=== PATIENT | female | born 1960 | race Caucasian/White ===

== ENCOUNTER 2018-10-29 18:14 | Inpatient (IN) | payer OTHER ==
[2018-10-29] MEDS ORDERED: ONDANSETRON 4 MG/2 ML VIAL IVPUSH ONE (18:28)
--- NOTE | 2018-10-29 18:28 | PDOC ---
Rapid Medical Evaluation Chief Complaint: Pain Time Seen by Provider: 10/29/18 18:24 Medical Evaluation: 10/29/18 18:27 HPI: Abdominal pain x 4 days PE: No gross deficits ORDERS: Labs Discharge Disposition - Diagnosis Abdominal pain - Referrals - Patient Instructions - Post Discharge Activity
[2018-10-29] MEDS ORDERED: ONDANSETRON 4 MG/2 ML VIAL ONE (20:07)
[2018-10-29] MEDS ORDERED: ACETAMINOPHEN 1000 MG/100 ML VIAL (NON FORMULARY) IVPB ONE (20:38)
[2018-10-29] MEDS ORDERED: HYDROmorphone HCL CARPU-JECT 2 MG/1 ML DISP.SYRIN IVPUSH ONE (20:38)
[2018-10-29] MEDS ORDERED: SODIUM CHLORIDE 1,000 ML IV STA (20:38)
[2018-10-29] MEDS ORDERED: HYDROmorphone HCl 2 MG/ML VIAL ONE (20:42)
--- NOTE | 2018-10-29 20:43 | PDOC ---
History of Present Illness - General Chief Complaint: Pain Stated Complaint: ABDOMINAL PAIN Time Seen by Provider: 10/29/18 18:24 History Source: Patient Exam Limitations: No Limitations - History of Present Illness Initial Comments: 10/30/18 01:51 58 yo F with a hx of seronegative rheumatoid arthritis, multiple abdominal surgeries (multiple SBOs per patient, most recent 1 year ago, cholecystectomy, anterior spinal fusion, hysterectomy, and C/S) presents to the emergency department with 5 days of abdominal pain with acute worsening today. Per the patient, she states this pain feels similar to her last SBO (previous surgeries done by Dr. Colbert and Dr. Sangeetha Dillon). Per the patient, she recently moved from [place]. The patient states the pain is cramping located in the LLQ radiating to the LUQ. Her last BM was in the AM 4x small diarrheal episodes. Began vomiting today without hematochezia. Unable to tolerate PO at home. The patient denies the following: fever, chills, SOB, chest pain, dysuria, hematuria , and lightheadedness. Last meal and water consumption at 1:00 pm and denies anticoagulation use. Denies aspirin use. Allergies: Morphine (states she gets hives; but endorses dilaudid use in the past), prochlorperazine. Past History - Past Medical History Allergies/Adverse Reactions: Allergies Allergy/AdvReac Type Severity Reaction Status Date / Time morphine Allergy Severe Verified 10/29/18 18:27 prochlorperazine Allergy Severe Verified 10/29/18 18:27 [From Compazine] - Suicide/Smoking/Psychosocial Hx Smoking History: Current every day smoker Number of Cigarettes Smoked Daily: 10 Information on smoking cessation initiated: No Hx Alcohol Use: No Drug/Substance Use Hx: No *Physical Exam - Vital Signs Last Vital Signs Temp Pulse Resp BP Pulse Ox 98.6 F 59 L 18 119/73 97 10/29/18 18:28 10/29/18 18:28 10/29/18 18:28 10/29/18 18:28 10/29/18 18:28 - Physical Exam General Appearance: Yes: Nourished, Appropriately Dressed. No: Apparent Distress, Intoxicated, Obese HEENT: positive: EOMI, NGA, Normal Voice, Symmetrical, Pharynx Normal, Hearing Grossly Normal. negative: Pale Conjunctivae, Scleral Icterus (R), Scleral Icterus (L), Muffled/Hoarse voice, Pharyngeal Erythema, Tonsillar Exudate, Tonsillar Erythema, Nasal Congestion, Rhinorrhea, Sinus Tenderness, Excessive drooling Neck: positive: Trachea midline, Supple. negative: Tender, Lymphadenopathy (R) , Lymphadenopathy (L), Tender lateral, Tender midline Respiratory/Chest: positive: Lungs Clear, Normal Breath Sounds. negative: Chest Tender, Respiratory Distress, Accessory Muscle Use, Crackles, Rales, Rhonchi, Stridor, Wheezing Cardiovascular: positive: Regular Rhythm, Regular Rate, S1, S2. negative: Systolic Murmur Gastrointestinal/Abdominal: positive: Normal Bowel Sounds, Tender (LUQ and LLQ. ), Soft, Distended. negative: Guarding, Rebound Lymphatic: negative: Adenopathy Musculoskeletal: positive: Normal Inspection. negative: CVA Tenderness, Vertebral Tenderness Extremity: positive: Normal Capillary Refill, Normal Inspection, Normal Range of Motion. negative: Tender, Swelling, Calf Tenderness Integumentary: positive: Normal Color, Dry, Warm. negative: Swelling, Ecchymosis, Bruising Neurologic: positive: direct support staff member II-XII NML intact, Fully Oriented, Alert, Normal Mood/ Affect, Motor Strength 5/5. negative: EOM Palsy ED Treatment Course - LABORATORY CBC & Chemistry Diagram: 10/29/18 20:40 10/29/18 20:40 Medical Decision Making - Medical Decision Making 58 yo F with a hx of seronegative rheumatoid arthritis, multiple abdominal surgeries (multiple SBOs per patient, most recent 1 year ago, cholecystectomy, anterior spinal fusion, hysterectomy, and C/S) presents to the emergency department with 5 days of abdominal pain with acute worsening today. Initial vitals: Initial Vital Signs Temp Pulse Resp BP Pulse Ox 98.6 F 59 L 18 119/73 97 10/29/18 18:28 10/29/18 18:28 10/29/18 18:28 10/29/18 18:28 10/29/18 18:28 Patient presents with extensive abdominal surgeries with similar quality of abdominal pain from previous SBOs. The patient has had N/V onset with decreased output of stool beginning today with cessation of flatulence. Will obtain cbc, cmp, lipase, lactic acid, ua, urine culture, abdomen pelvis IV and Oral. Interventions: dilaudid, NS 1 L initial bolus, and tylenol. Laboratory Tests 10/29/18 10/29/18 10/29/18 20:40 20:40 20:40 WBC 7.8 RBC 4.36 Hgb 11.7 Hct 35.5 MCV 81.6 MCH 26.8 MCHC 32.8 RDW 16.6 H Plt Count 262 MPV 8.5 Absolute Neuts (auto) 4.3 Neutrophils % 55.1 Lymphocytes % 36.2 Monocytes % 5.6 Eosinophils % 2.0 Basophils % 1.1 Nucleated RBC % 0 PT with INR INR Sodium 137 Potassium 4.0 Chloride 103 Carbon Dioxide 29 Anion Gap 6 L BUN 12.2 Creatinine 0.6 Est GFR (CKD-EPI)AfAm 117.27 Est GFR (CKD-EPI)NonAf 101.18 Random Glucose 84 Lactic Acid Calcium 9.0 Total Bilirubin 0.2 AST 20 ALT 27 Alkaline Phosphatase 88 Creatine Kinase 101 Troponin I < 0.02 Total Protein 6.6 Albumin 3.7 Lipase 61 L 10/29/18 10/29/18 20:40 20:40 WBC RBC Hgb Hct MCV MCH MCHC RDW Plt Count MPV Absolute Neuts (auto) Neutrophils % Lymphocytes % Monocytes % Eosinophils % Basophils % Nucleated RBC % PT with INR 11.20 INR 0.95 Sodium Potassium Chloride Carbon Dioxide Anion Gap BUN Creatinine Est GFR (CKD-EPI)AfAm Est GFR (CKD-EPI)NonAf Random Glucose Lactic Acid 0.5 Calcium Total Bilirubin AST ALT Alkaline Phosphatase Creatine Kinase Troponin I Total Protein Albumin Lipase lactic acid negative. patient's CT abdomen and pelvis (read on imaging director of flight operations) shows by report "short segment of minimally dilated small bowel left lower quadrant possibly transient dilatation versus partial obstruction. Advise follow up. Oral contrast progresses into colon. A call was placed to surgery director of flight operations 2nd 1 Liter of NS placed and maintenance fluids ordered (112 ml/hr). 10/30/18 02:05 10/30/18 02:09 *DC/Admit/Observation/Transfer Diagnosis at time of Disposition: Abdominal pain - Referrals Referrals: Collette Young MD [Primary Care Provider] - - Patient Instructions - Post Discharge Activity
[2018-10-29] MEDS ORDERED: ACETAMINOPHEN INJECTION 100 ML IVPB ONE (20:44)
[2018-10-29 21:09] LABS: BASO % 1.1 % (0-2.0); HEMATOCRIT 35.5 % (32.4-45.2); HEMOGLOBIN 11.7 GM/dL (10.7-15.3); LYMPH % 36.2 % (8-40); MCH 26.8 pg (25.7-33.7); MCHC 32.8 g/dl (32.0-36.0); MEAN CELL VOLUME 81.6 fl (80-96); MEAN PLT VOLUME 8.5 fl (7.5-11.1); MONO % 5.6 % (3.8-10.2); NEUT % 55.1 % (42.8-82.8); PLATELET COUNT 262 K/MM3 (134-434); RBC 4.36 M/mm3 (3.60-5.2); RDW 16.6 % (11.6-15.6); WHITE BLOOD COUNT 7.8 K/mm3 (4.0-10.0)
[2018-10-29 21:30] LABS: INR 0.95 (0.83-1.09); PROTHROMBIN TIME (PATIENT) 11.2 SEC (9.7-13.0)
[2018-10-29 21:33] LABS: ALBUMIN 3.7 g/dl (3.4-5.0); ALK PHOS 88 U/L (45-117); ANION GAP 6 MMOL/L (8-16); BILIRUBIN,TOTAL 0.2 mg/dL (0.2-1); BLOOD UREA NITROGEN 12.2 mg/dL (7-18); CHLORIDE 103 mmol/L (98-107); CO2 29 mmol/L (21-32); CREATININE 0.6 mg/dL (0.55-1.3); GLUCOSE,RANDOM 84 mg/dL (74-106); SGOT/AST 20 U/L (15-37); SGPT/ALT 27 U/L (13-61); SODIUM 137 mmol/L (136-145); TOT PROT 6.6 g/dl (6.4-8.2)
--- NOTE | 2018-10-29 21:52 | PDOC ---
Documentation entered by Cary Chowdary SCRIBE, acting as scribe for Mayelin Gordon MD. Mayelin Gordon MD: This documentation has been prepared by the Epi palma Brenda, SCRIBE, under my direction and personally reviewed by me in its entirety. I confirm that the documentation accurately reflects all work, treatment, procedures, and medical decision making performed by me. Attending Attestation - Resident Resident Name: Tacho Stacy - ED Attending Attestation I have performed the following: I have examined & evaluated the patient, The case was reviewed & discussed with the resident, I agree w/resident's findings & plan, Exceptions are as noted - HPI HPI: 10/29/18 20:17 The patient is a 58 year old female, with a significant PMH of who presents to the emergency department with 4 days of abdominal pain. - Physicial Exam PE: 10/30/18 01:[address] Stacy's physical exam - Medical Decision Making 10/29/18 21:51 diff diag includes partial or complete sbo, diverticulitis,hernia,diverticulitis ,fecal impaction labs are unremarkable 10/30/18 01:27 EXAM: CT ABDOMEN AND PELVIS WITH CONTRAST Short segment of minimally dilated small bowel left lower quadrant, possibly transient dilatation versus partial obstruction. Advise followup. Oral contrast progresses into colon. Surgical changes right lower quadrant small bowel with anastomotic suture line near midline. No colitis or free air. Normal appendix. Trace ascites Unremarkable pancreas Small nonobstructing stones bilateral kidneys. Subcentimeter cortical hypodensity left kidney Cholecystectomy Hysterectomy Gastroesophageal reflux Trace bilateral pleural effusions Surgical changes lumbar spine 10/30/18 01:55 labs reviewed wnl will admit this pt for partial sbo, serial abd exams,surgical consult
[2018-10-29] MEDS ORDERED: METOCLOPRAMIDE HCL INJECTION 10 MG/2 ML VIAL IVPB ONE (22:55)
[2018-10-29] MEDS ORDERED: METOCLOPRAMIDE HCL INJECTION 10 MG/2 ML VIAL ONE (23:02)
[2018-10-30] MEDS ORDERED: SODIUM CHLORIDE 1,000 ML IV STA (01:34)
[2018-10-30] MEDS ORDERED: SODIUM CHLORIDE 1,000 ML IV SCH (01:45)
[2018-10-30 02:33] LABS: PH,URINE 6.5 (5.0-8.0); URINE APPEARANCE CLEAR; URINE BILIRUBIN NEGATIVE (NEGATIVE); URINE COLOR YELLOW; URINE GLUCOSE (UA) NEGATIVE (NEGATIVE); URINE KETONE NEGATIVE (NEGATIVE); URINE LEUK ESTERASE NEGATIVE (NEGATIVE); URINE NITRITE NEGATIVE (NEGATIVE); URINE PROTEIN NEGATIVE (NEGATIVE); URINE UROBILINOGEN 0.2 mg/dL (0.2-1.0)
--- NOTE | 2018-10-30 03:21 | PN ---
Teaching Attending Note Name of Resident: Marleny Arzate ATTENDING PHYSICIAN STATEMENT I saw and evaluated the patient. I reviewed the resident's note and discussed the case with the resident. I agree with the resident's findings and plan as documented. SUBJECTIVE: Patient is a 58 year old womna with a PMH of Tobacco use, Morphine allergy, Psoriatic arthritis, Multiple abdominal surgeries (multiple SBOs), Cholecystectomy, Anterior spinal fusion, Hysterectomy and section presents to the ER with 5 days of abdominal pain that worsened today. Patient states that the pain feels similar to her last SBO (previous surgeries done by Dr. Colbert and Dr. Sangeetha Dillon). Per the patient, she recently moved from [place]. The patient states the pain is cramping, located in the LLQ, radiating to the LUQ. Her last BM was in the morning. Began vomiting today without hematochezia. Unable to tolerate PO at home. Patient denies fever, chills, SOB, chest pain, dysuria, hematuria, and lightheadedness. Last meal and water consumption at 1:00 pm and denies anticoagulation use. Denies aspirin use. Has FH of psoriasis. OBJECTIVE: Alert Vital Signs Period Temp Pulse Resp BP Sys/Keith Pulse Ox Last 24 Hr 98.6 F 59 18 119/73 97-98 HEENT: No Jaundice, eye redness or discharge, PERRLA, EOMI. Normocephalic, atraumatic. External ears are normal and hearing is grossly intact. No nasal discharge. Neck: Supple, nontender. No palpable adenopathy or thyromegaly. No JVD Chest: Good effort. Clear to auscultation and percussion. Heart: Regular. No S3, rub or murmur Abdomen: Not distended, soft, nontender and no HSM. No rebound or guarding. Normal bowel sounds. Ext: Peripheral pulses intact. No leg edema. Skin: Warm and dry. No petechiae, rash or ecchymosis. Neuro: Alert. Oriented x3. CN 2-12 grossly intact. Sensation grossly intact in all four extremities and DTR are symmetric. Psych: Appropriate mood and affect. Good insight. Current Medications Generic Name Dose Route Start Last Admin Trade Name Freq PRN Reason Stop Dose Admin Sodium Chloride 1,000 mls @ 112 mls/hr 10/30/18 01:45 10/30/18 02:20 Normal Saline - IV 112 mls/hr ASDIR SANGEETHA Administration Abnormal Lab Results 10/29/18 10/29/18 10/29/18 20:40 20:40 20:40 RDW 16.6 H Anion Gap 6 L Lipase 61 L ASSESSMENT AND PLAN: 1. Partial Small Bowel Obstruction - Preliminary report of CT abdomen/pelvis with contrast: "Short segment of minimally dilated small bowel left lower quadrant, possibly transient dilatation versus partial obstruction. Oral contrast progresses into colon. No colitis or free air. Normal appendix. Unremarkable pancreas. Small nonobstructing stones bilateral kidneys. Subcentimeter cortical hypodensity left kidney". Surgery consulted. In the ER, patient got IV tylenol, dilaudid, benadryl, zofran, reglan and Normal saline. Patient being kept NPO and will use dilaudid for pain control and continue gentle IV NS. Hypotension may be due to medications she got before arrival (zanax, amlodipine, toprol xl, oxycodone, etc.). Will continue IV NS and avoid further use of analgesics, sedatives or antihypertensive drugs. EKG shows sinus bradycardia with no significant ST-T wave changes. During the day will get her medical records from the [facility]. 2. Tobacco Use Counseled on risks associated with tobacco use. We will provide patient all the necessary assistance to facilitate smoking cessation and prescribe Nicotine patch. 3. Obesity Counseled on the risks associated with obesity. Will provide patient all the necessary assistance, counseling and positive reinforcement to facilitate weight loss. Consult v belt finisher. 4. DVT prophylaxis - SCD 5. Advance directives - Full code
--- NOTE | 2018-10-30 04:44 | HP ---
CHIEF COMPLAINT: abdominal pain PCP: Dr. Collette Young ([facility]) Pain Management Physician: Dr. Nitin Arvizu HISTORY OF PRESENT ILLNESS: Iman Chang is a 58 year old female with a past medical history of seronegative rheumatoid arthritis with recent diagnosis of psoriatic arthritis, multiple surgeries (cholecystectomy, anterior spinal fusion, total hysterectomy , 2 with 1 being a vertical incision), 4 episodes of small bowel obstruction with 1 episode requiring partial small bowel resection who presents for several days worth of abdominal pain. She states that the abdominal pain began 4 days ago and has progressively getting worse. Pain is located in the epigastric region with radiation to the LUQ and RUQ with some migration to the RLQ and the back. Noted that pain is intermittent and worse when she palpates her stomach. She endorsed distension of the abdomen over the last several days. Associated nausea, dry heaving, no vomiting started on day of admission. Associated loose bowel movements, no melena, no hematochezia. She states that the pain is exactly the same as it was on her previous small bowel obstruction episodes. Her last meal was at 1PM on the day of admission when she was not able to eat as much as she usually does and was not able to consume fluids well. Denied chest pain, shortness of breath, fever, chills, dysphagia, dysuria , frequency, urgency, incomplete emptying, vaginal bleeding, numbness, tingling , swelling of extremities. Additionally, stated that she receives pain medication through Dr. Nitin Arvizu, oxycodone 30mg q4h and 10mg for breakthrough pain. This must be confirmed with the physician and through [facility]. ER course was notable for: (1) Hypotensive 82/48 (2) Abd/pelvis CT showing minimally dilated small bowel with transient dilation vs partial obstruction, contrast present in large colon, small non-obstructing renal stones, trace bilateral effusions (3) given 2L NS, ofirmev, benadryl, dilaudid 0.5, Reglan, Zofran, continued on NS @112cc/hr Recent Travel: recently moved from [facility] on [address] PAST MEDICAL HISTORY: as above PAST SURGICAL HISTORY: as above Social History: Smoking: on patch, recently started to smoke again Alcohol: denies Drugs: denies Family History: endorses family history of psoriasis Allergies morphine Allergy (Severe, Verified 10/29/18 18:27) prochlorperazine [From Compazine] Allergy (Severe, Verified 10/29/18 18:27) HOME MEDICATIONS: REVIEW OF SYSTEMS CONSTITUTIONAL: loss of appetite Absent: fever, chills, diaphoresis, generalized weakness, malaise, weight change HEENT: Absent: rhinorrhea, nasal congestion, throat pain, throat swelling, difficulty swallowing, CARDIOVASCULAR: Absent: chest pain, syncope, palpitations, irregular heart rate, lightheadedness , peripheral edema RESPIRATORY: Absent: cough, shortness of breath, dyspnea with exertion, orthopnea, wheezing GASTROINTESTINAL: abdominal pain, abdominal distension, loss bowel movement, nausea Absent: vomiting, diarrhea, constipation, melena, hematochezia GENITOURINARY: Absent: dysuria, frequency, urgency, hesitancy, hematuria, flank pain, vaginal bleeding MUSCULOSKELETAL: Absent: myalgia, arthralgia, joint swelling, back pain, neck pain SKIN: Absent: rash, itching, pallor HEMATOLOGIC/IMMUNOLOGIC: Absent: easy bleeding, easy bruising, lymphadenopathy, frequent infections ENDOCRINE: Absent: unexplained weight gain, unexplained weight loss, heat intolerance, cold intolerance NEUROLOGIC: Absent: headache, focal weakness or paresthesias, dizziness, unsteady gait, seizure, mental status changes, bladder or bowel incontinence PSYCHIATRIC: Absent: anxiety, depression, suicidal or homicidal ideation, hallucinations. PHYSICAL EXAMINATION Vital Signs - 24 hr 10/29/18 10/29/18 10/29/18 18:28 19:00 21:09 Temperature 98.6 F Pulse Rate 59 L Pulse Rate [ 51 L Left] Respiratory 18 19 Rate Blood Pressure 119/73 Blood Pressure 82/48 L [Left Arm] Blood Pressure 83/46 L [Right Arm] O2 Sat by Pulse 97 95 98 Oximetry (%) GENERAL: Awake, alert, and fully oriented, in moderate acute distress. HEAD: Normal with no signs of trauma. EYES: Pupils equal, round and reactive to light, extraocular movements intact, sclera anicteric, conjunctiva clear. EARS, NOSE, THROAT: Oropharynx clear without exudates. Dry mucous membranes. NECK: Normal range of motion, supple without lymphadenopathy, JVD. LUNGS: Breath sounds equal, clear to auscultation bilaterally. No wheezes, and no crackles. No accessory muscle use. HEART: Regular rate and rhythm, normal S1 and S2 without murmur, rub or gallop. ABDOMEN: Soft, distended, tender to palpation in the epigastric region, RUQ, LUQ , normoactive bowel sounds in lower quadrants, hypoactive bowel sounds in the upper quadrants, no guarding, no rebound, no masses. MUSCULOSKELETAL: Normal range of motion at all joints. No bony deformities or tenderness. UPPER EXTREMITIES: 2+ pulses, warm, well-perfused. No cyanosis. No clubbing. No peripheral edema. LOWER EXTREMITIES: 2+ pulses, warm, well-perfused. No calf tenderness. No peripheral edema. NEUROLOGICAL: Cranial nerves II-XII intact. 5/5 muscle strength bilaterally upper and lower extremities. PSYCHIATRIC: Cooperative. Good eye contact. Anxious mood and affect. SKIN: Warm, dry, normal turgor, no rashes or lesions noted, normal capillary refill. Laboratory Results - last 24 hr 10/29/18 10/29/18 10/29/18 20:40 20:40 20:40 WBC 7.8 RBC 4.36 Hgb 11.7 Hct 35.5 MCV 81.6 MCH 26.8 MCHC 32.8 RDW 16.6 H Plt Count 262 MPV 8.5 Absolute Neuts (auto) 4.3 Neutrophils % 55.1 Lymphocytes % 36.2 Monocytes % 5.6 Eosinophils % 2.0 Basophils % 1.1 Nucleated RBC % 0 PT with INR INR Sodium 137 Potassium 4.0 Chloride 103 Carbon Dioxide 29 Anion Gap 6 L BUN 12.2 Creatinine 0.6 Est GFR (CKD-EPI)AfAm 117.27 Est GFR (CKD-EPI)NonAf 101.18 Random Glucose 84 Lactic Acid Calcium 9.0 Total Bilirubin 0.2 AST 20 ALT 27 Alkaline Phosphatase 88 Creatine Kinase 101 Troponin I < 0.02 Total Protein 6.6 Albumin 3.7 Lipase 61 L Urine Color Urine Appearance Urine pH Ur Specific [place] Urine Protein Urine Glucose (UA) Urine Ketones Urine Blood Urine Nitrite Urine Bilirubin Urine Urobilinogen Ur Leukocyte Esterase 10/29/18 10/29/18 10/30/18 20:40 20:40 02:00 WBC RBC Hgb Hct MCV MCH MCHC RDW Plt Count MPV Absolute Neuts (auto) Neutrophils % Lymphocytes % Monocytes % Eosinophils % Basophils % Nucleated RBC % PT with INR 11.20 INR 0.95 Sodium Potassium Chloride Carbon Dioxide Anion Gap BUN Creatinine Est GFR (CKD-EPI)AfAm Est GFR (CKD-EPI)NonAf Random Glucose Lactic Acid 0.5 Calcium Total Bilirubin AST ALT Alkaline Phosphatase Creatine Kinase Troponin I Total Protein Albumin Lipase Urine Color Yellow Urine Appearance Clear Urine pH 6.5 Ur Specific [place] 1.030 Urine Protein Negative Urine Glucose (UA) Negative Urine Ketones Negative Urine Blood Negative Urine Nitrite Negative Urine Bilirubin Negative Urine Urobilinogen 0.2 Ur Leukocyte Esterase Negative EKG--> sinus bradycardia, no ST segment changes, QTc 390 ASSESSMENT/PLAN: Iman Chang is a 58 year old female with a past medical history of seronegative rheumatoid arthritis with recent diagnosis of psoriatic arthritis, multiple surgeries (cholecystectomy, anterior spinal fusion, total hysterectomy , 2 with 1 being a vertical incision), 4 episodes of small bowel obstruction with 1 episode requiring partial small bowel resection admitted for small bowel obstruction. Small Bowel Obstruction Hypertension Psoriatic Arthritis Tobacco Use Disorder Small Bowel Obstruction - exacerbation with extensive abdominal surgical history and history of SBO - NPO - can consider NG tube - Dr. Triplett consulted, will see patient - continue hydration with NS at 150cc/hr - will hold additional pain medications in setting of patient's hypotension of unclear origin, probable likelihood from overmedication with opiate pain medication as no reflex tachycardia present, caution with restart of pain medication - Necessary to reconciliate patient's pain medication from her pain management doctor, Dr. Arvizu ([phone]) and [facility] to confirm dosage Hypertension - hold home BP meds in setting of hypotension Psoriatic Arthritis - need to reconciliate home medications for her chronic autoimmune condition Tobacco Use Disorder - encouraged to abstain - nicotine patch FEN - NS at 150cc/hr - continue to monitor electrolytes and replete as necessary - NPO pending clearance by surgery Prophylaxis - SCDs Code - full code MARITZA PAZ DO - PGY-1 Visit type - Emergency Visit Emergency Visit: Yes Care time: The patient presented to the Emergency Department on the above date and was hospitalized for further evaluation of their emergent condition. - New Patient This patient is new to me today: Yes Date on this admission: 10/30/18 - Critical Care Critical Care patient: No
[2018-10-30] MEDS: SODIUM CHLORIDE 1,000 ML IV SCH ×2 (05:24→10:14)
[2018-10-30 08:54] LABS: HEMATOCRIT 34.7 % (32.4-45.2); HEMOGLOBIN 11.6 GM/dL (10.7-15.3); MCH 27.4 pg (25.7-33.7); MCHC 33.5 g/dl (32.0-36.0); MEAN CELL VOLUME 81.9 fl (80-96); MEAN PLT VOLUME 8.2 fl (7.5-11.1); PLATELET COUNT 241 K/MM3 (134-434); RBC 4.24 M/mm3 (3.60-5.2); RDW 16.5 % (11.6-15.6); WHITE BLOOD COUNT 6.5 K/mm3 (4.0-10.0)
[2018-10-30 09:23] LABS: INR 0.98 (0.83-1.09); PROTHROMBIN TIME (PATIENT) 11.6 SEC (9.7-13.0)
[2018-10-30 09:26] LABS: ACTIVATED PTT 41.7 SECONDS (25.2-36.5)
[2018-10-30 09:32] LABS: ALBUMIN 3.5 g/dl (3.4-5.0); BILIRUBIN,TOTAL 0.6 mg/dL (0.2-1); BLOOD UREA NITROGEN 7.6 mg/dL (7-18); CREATININE 0.6 mg/dL (0.55-1.3); MAGNESIUM 1.9 mg/dL (1.8-2.4); POTASSIUM 4.5 mmol/L (3.5-5.1); TOT PROT 6.2 g/dl (6.4-8.2)
[2018-10-30] MEDS ORDERED: KETOROLAC TROMETHAMINE 30 MG/1 ML VIAL IVPUSH PRN (09:57)
[2018-10-30] MEDS ORDERED: ENOXAPARIN NA (PORCINE) 40 MG/0.4 ML DISP.SYRIN SQ SCH (10:00)
[2018-10-30] MEDS ORDERED: NICOTINE 7 MG/24 HOURS TOPICAL PATCH TD SCH (10:00)
[2018-10-30] MEDS ORDERED: NICOTINE 21 MG/24 HOURS TOPICAL PATCH TD SCH (10:14)
[2018-10-30] MEDS ORDERED: DEXTROSE 5%-NORMAL SALINE 1,000 ML IV SCH (10:45)
[2018-10-30] MEDS ORDERED: ONDANSETRON 4 MG/2 ML VIAL IVPUSH PRN (10:46)
[2018-10-30] MEDS ORDERED: LORazepam 2 MG/ML SDV VIAL IVPUSH PRN (10:47)
[2018-10-30 12:31] VITALS: BP 127/77; PULSE 51; TEMP 98.5
--- NOTE | 2018-10-30 12:44 | EKG ---
Test Reason : Blood Pressure : / mmHG Vent. Rate : 053 BPM Atrial Rate : 053 BPM P-R Int : 156 ms QRS Dur : 080 ms QT Int : 416 ms P-R-T Axes : 019 033 026 degrees QTc Int : 390 ms SINUS BRADYCARDIA OTHERWISE NORMAL ECG NO PREVIOUS ECGS AVAILABLE Confirmed by Bubba Ochoa MD ([id number]) on 10/30/2018 12:44:06 PM Referred By: Confirmed By:Bubba Ochoa MD
[2018-10-30 13:04] VITALS: BMI 26.5
--- NOTE | 2018-10-30 13:12 | PN ---
Teaching Attending Note Name of Resident: Eric Sommers ATTENDING PHYSICIAN STATEMENT I saw and evaluated the patient. I reviewed the resident's note and discussed the case with the resident. I agree with the resident's findings and plan as documented with exceptions below. SUBJECTIVE: Patient seen and examined. reports, nausea, some central abdominal pain but no vomiting. Asking for pain medications for her shoulder pain and generalized aches and pains. OBJECTIVE: Vital Signs Period Temp Pulse Resp BP Sys/Keith Pulse Ox Last 24 Hr 98.0 F-98.9 F 50-59 18-20 82-127/46-77 93-98 Intake & Output 10/27/18 10/28/18 10/29/18 10/30/18 23:59 23:59 23:59 23:59 Weight 160 lb 140 lb 6.4 oz General: lying in bed, comfortable, no distress noted Neck; Soft, supple Chest; CTAB, no rales or wheezing Abdomen:soft, normoactive bowel sounds, mild bernie-umbilical tenderness, no voluntary or involuntary guarding or rigidity, ND Extremities: no edema Home Medications Medication Instructions Recorded Alprazolam [Xanax] 0.5 mg PO QID 10/30/18 Amlodipine Besylate [Norvasc -] 10 mg PO DAILY 10/30/18 Apremilast [Otezla] 30 mg PO BID 10/30/18 Deutetrabenazine [Austedo] 18 mg PO BID 10/30/18 Dexlansoprazole [Dexilant] 60 mg PO DAILY 10/30/18 Escitalopram Oxalate [Lexapro -] 10 mg PO DAILY 10/30/18 Gabapentin [Neurontin -] 400 mg PO Q8H 10/30/18 Metoprolol Tartrate [Lopressor -] 25 mg PO DAILY 10/30/18 Oxcarbazepine [Trileptal] 300 mg PO BID 10/30/18 Oxycodone HCl 10 mg PO PRN 10/30/18 Oxycodone HCl 30 mg PO PRN PRN 10/30/18 traZODone HCL [Trazodone HCl] 100 mg PO HS 10/30/18 Active Medications Dextrose/Sodium Chloride (D5-Ns -) 1,000 mls @ 125 mls/hr IV ASDIR SANGEETHA Ketorolac Tromethamine (Toradol Injection -) 30 mg IVPUSH Q6H PRN PRN Reason: PAIN LEVEL 1-5 Stop: 11/04/18 09:56 Last Admin: 10/30/18 10:11 Dose: 30 mg Nicotine (Nicoderm Patch -) 21 mg TD DAILY SANGEETHA Last Admin: 10/30/18 11:21 Dose: 21 mg Ondansetron HCl (Zofran Injection) 4 mg IVPUSH Q6H PRN PRN Reason: NAUSEA AND/OR VOMITING Last Admin: 10/30/18 11:21 Dose: 4 mg Laboratory Results - last 24 hr 10/29/18 10/29/18 10/29/18 20:40 20:40 20:40 WBC 7.8 RBC 4.36 Hgb 11.7 Hct 35.5 MCV 81.6 MCH 26.8 MCHC 32.8 RDW 16.6 H Plt Count 262 MPV 8.5 Absolute Neuts (auto) 4.3 Neutrophils % 55.1 Lymphocytes % 36.2 Monocytes % 5.6 Eosinophils % 2.0 Basophils % 1.1 Nucleated RBC % 0 PT with INR INR PTT (Actin FS) Sodium 137 Potassium 4.0 Chloride 103 Carbon Dioxide 29 Anion Gap 6 L BUN 12.2 Creatinine 0.6 Est GFR (CKD-EPI)AfAm 117.27 Est GFR (CKD-EPI)NonAf 101.18 Random Glucose 84 Lactic Acid Calcium 9.0 Magnesium Total Bilirubin 0.2 AST 20 ALT 27 Alkaline Phosphatase 88 Creatine Kinase 101 Troponin I < 0.02 Total Protein 6.6 Albumin 3.7 Lipase 61 L Urine Color Urine Appearance Urine pH Ur Specific [place] Urine Protein Urine Glucose (UA) Urine Ketones Urine Blood Urine Nitrite Urine Bilirubin Urine Urobilinogen Ur Leukocyte Esterase Blood Type Antibody Screen 10/29/18 10/29/18 10/30/18 20:40 20:40 02:00 WBC RBC Hgb Hct MCV MCH MCHC RDW Plt Count MPV Absolute Neuts (auto) Neutrophils % Lymphocytes % Monocytes % Eosinophils % Basophils % Nucleated RBC % PT with INR 11.20 INR 0.95 PTT (Actin FS) Sodium Potassium Chloride Carbon Dioxide Anion Gap BUN Creatinine Est GFR (CKD-EPI)AfAm Est GFR (CKD-EPI)NonAf Random Glucose Lactic Acid 0.5 Calcium Magnesium Total Bilirubin AST ALT Alkaline Phosphatase Creatine Kinase Troponin I Total Protein Albumin Lipase Urine Color Yellow Urine Appearance Clear Urine pH 6.5 Ur Specific [place] 1.030 Urine Protein Negative Urine Glucose (UA) Negative Urine Ketones Negative Urine Blood Negative Urine Nitrite Negative Urine Bilirubin Negative Urine Urobilinogen 0.2 Ur Leukocyte Esterase Negative Blood Type Antibody Screen 10/30/18 10/30/18 10/30/18 08:00 08:00 08:00 WBC 6.5 RBC 4.24 Hgb 11.6 Hct 34.7 MCV 81.9 MCH 27.4 MCHC 33.5 RDW 16.5 H Plt Count 241 MPV 8.2 Absolute Neuts (auto) Neutrophils % Lymphocytes % Monocytes % Eosinophils % Basophils % Nucleated RBC % PT with INR 11.60 INR 0.98 PTT (Actin FS) 41.7 H Sodium 139 Potassium 4.5 Chloride 106 Carbon Dioxide 30 Anion Gap 4 L BUN 7.6 Creatinine 0.6 Est GFR (CKD-EPI)AfAm 117.27 Est GFR (CKD-EPI)NonAf 101.18 Random Glucose 76 Lactic Acid Calcium 9.0 Magnesium 1.9 Total Bilirubin 0.6 AST 47 H ALT 47 Alkaline Phosphatase 87 Creatine Kinase Troponin I Total Protein 6.2 L Albumin 3.5 Lipase Urine Color Urine Appearance Urine pH Ur Specific [place] Urine Protein Urine Glucose (UA) Urine Ketones Urine Blood Urine Nitrite Urine Bilirubin Urine Urobilinogen Ur Leukocyte Esterase Blood Type Antibody Screen 10/30/18 10/30/18 08:00 Unknown WBC RBC Hgb Hct MCV MCH MCHC RDW Plt Count MPV Absolute Neuts (auto) Neutrophils % Lymphocytes % Monocytes % Eosinophils % Basophils % Nucleated RBC % PT with INR INR PTT (Actin FS) Sodium Potassium Chloride Carbon Dioxide Anion Gap BUN Creatinine Est GFR (CKD-EPI)AfAm Est GFR (CKD-EPI)NonAf Random Glucose Lactic Acid Calcium Magnesium Total Bilirubin AST ALT Alkaline Phosphatase Creatine Kinase Troponin I Total Protein Albumin Lipase Urine Color Urine Appearance Urine pH Ur Specific [place] Urine Protein Urine Glucose (UA) Urine Ketones Urine Blood Urine Nitrite Urine Bilirubin Urine Urobilinogen Ur Leukocyte Esterase Blood Type O POSITIVE O POSITIVE Antibody Screen Negative CT A/P official results reviewed, no evidence of small bowel obstruction KUB: hardware, contrast noted, no dilatation on my read, follow up official report ASSESSMENT AND PLAN: 58 yof with PMHx of reported seronegative rheumatoid arthritis with recent diagnosis of psoriatic arthritis, reported multiple surgeries (cholecystectomy, anterior spinal fusion, total hysterectomy, 2 with 1 being a vertical incision), 4 episodes of small bowel obstruction with 1 episode requiring reported partial small bowel resection comes with abdominal pain and nausea -Abdominal pain/nausea, ?partial SBO -narcotic dependence -Reported seronegative rheumatoid arthritis -reported multiple abdominal surgeries -Prior h/o reported SBO Plan: Official CT A/P neg for SBO. KUB. Advance to clears if no concerns on imaging. ISTOP reviewed, reference# [id number], oxycodone 30 mg with 10 mg (monthly 180 tablets) by Dr. Arvizu. Patient requesting pain medications. discussed with in detail, narcotics likely contributory to her recurrent bowel concerns and to discuss opioid taper outpatient. Minimize narcotics, advance diet as above. Resume home regimen accordingly. Follow up surgery input. Continue gabapentin/lopressor DVTPPX lovenox Dispo in 24-48 hours if tolerating diet and no concerns. Discussed with patient and nursing.
--- NOTE | 2018-10-30 14:45 | DS ---
Physical Exam: SUBJECTIVE: Patient seen and examined at bedside. Pt is upset about not receiving IV narcotics OBJECTIVE: Vital Signs Period Temp Pulse Resp BP Sys/Keith Pulse Ox Last 24 Hr 98.0 F-98.9 F 50-59 18-20 82-127/46-77 93-98 PHYSICAL EXAM Gen: AAOx3, uncomfortable HEENT: NCAT, EOMI Neck: supple, no jvd Cardio: rrr, normal s1s2, no mrg Pulm: cta b/l Abd: surgical scar, diffusely tender to palpation. Of note, when not being examined, pt sits up comfortably and was noted to yell LABS Laboratory Results - last 24 hr 10/29/18 10/29/18 10/29/18 20:40 20:40 20:40 WBC 7.8 RBC 4.36 Hgb 11.7 Hct 35.5 MCV 81.6 MCH 26.8 MCHC 32.8 RDW 16.6 H Plt Count 262 MPV 8.5 Absolute Neuts (auto) 4.3 Neutrophils % 55.1 Lymphocytes % 36.2 Monocytes % 5.6 Eosinophils % 2.0 Basophils % 1.1 Nucleated RBC % 0 PT with INR INR PTT (Actin FS) Sodium 137 Potassium 4.0 Chloride 103 Carbon Dioxide 29 Anion Gap 6 L BUN 12.2 Creatinine 0.6 Est GFR (CKD-EPI)AfAm 117.27 Est GFR (CKD-EPI)NonAf 101.18 Random Glucose 84 Lactic Acid Calcium 9.0 Magnesium Total Bilirubin 0.2 AST 20 ALT 27 Alkaline Phosphatase 88 Creatine Kinase 101 Troponin I < 0.02 Total Protein 6.6 Albumin 3.7 Lipase 61 L Urine Color Urine Appearance Urine pH Ur Specific [place] Urine Protein Urine Glucose (UA) Urine Ketones Urine Blood Urine Nitrite Urine Bilirubin Urine Urobilinogen Ur Leukocyte Esterase Blood Type Antibody Screen 10/29/18 10/29/18 10/30/18 20:40 20:40 02:00 WBC RBC Hgb Hct MCV MCH MCHC RDW Plt Count MPV Absolute Neuts (auto) Neutrophils % Lymphocytes % Monocytes % Eosinophils % Basophils % Nucleated RBC % PT with INR 11.20 INR 0.95 PTT (Actin FS) Sodium Potassium Chloride Carbon Dioxide Anion Gap BUN Creatinine Est GFR (CKD-EPI)AfAm Est GFR (CKD-EPI)NonAf Random Glucose Lactic Acid 0.5 Calcium Magnesium Total Bilirubin AST ALT Alkaline Phosphatase Creatine Kinase Troponin I Total Protein Albumin Lipase Urine Color Yellow Urine Appearance Clear Urine pH 6.5 Ur Specific [place] 1.030 Urine Protein Negative Urine Glucose (UA) Negative Urine Ketones Negative Urine Blood Negative Urine Nitrite Negative Urine Bilirubin Negative Urine Urobilinogen 0.2 Ur Leukocyte Esterase Negative Blood Type Antibody Screen 10/30/18 10/30/18 10/30/18 08:00 08:00 08:00 WBC 6.5 RBC 4.24 Hgb 11.6 Hct 34.7 MCV 81.9 MCH 27.4 MCHC 33.5 RDW 16.5 H Plt Count 241 MPV 8.2 Absolute Neuts (auto) Neutrophils % Lymphocytes % Monocytes % Eosinophils % Basophils % Nucleated RBC % PT with INR 11.60 INR 0.98 PTT (Actin FS) 41.7 H Sodium 139 Potassium 4.5 Chloride 106 Carbon Dioxide 30 Anion Gap 4 L BUN 7.6 Creatinine 0.6 Est GFR (CKD-EPI)AfAm 117.27 Est GFR (CKD-EPI)NonAf 101.18 Random Glucose 76 Lactic Acid Calcium 9.0 Magnesium 1.9 Total Bilirubin 0.6 AST 47 H ALT 47 Alkaline Phosphatase 87 Creatine Kinase Troponin I Total Protein 6.2 L Albumin 3.5 Lipase Urine Color Urine Appearance Urine pH Ur Specific [place] Urine Protein Urine Glucose (UA) Urine Ketones Urine Blood Urine Nitrite Urine Bilirubin Urine Urobilinogen Ur Leukocyte Esterase Blood Type Antibody Screen 10/30/18 10/30/18 08:00 Unknown WBC RBC Hgb Hct MCV MCH MCHC RDW Plt Count MPV Absolute Neuts (auto) Neutrophils % Lymphocytes % Monocytes % Eosinophils % Basophils % Nucleated RBC % PT with INR INR PTT (Actin FS) Sodium Potassium Chloride Carbon Dioxide Anion Gap BUN Creatinine Est GFR (CKD-EPI)AfAm Est GFR (CKD-EPI)NonAf Random Glucose Lactic Acid Calcium Magnesium Total Bilirubin AST ALT Alkaline Phosphatase Creatine Kinase Troponin I Total Protein Albumin Lipase Urine Color Urine Appearance Urine pH Ur Specific [place] Urine Protein Urine Glucose (UA) Urine Ketones Urine Blood Urine Nitrite Urine Bilirubin Urine Urobilinogen Ur Leukocyte Esterase Blood Type O POSITIVE O POSITIVE Antibody Screen Negative HOSPITAL COURSE: Date of Admission:10/30/18 Date of Discharge: 10/30/18 Pt is a 58 y/o F with PMH seronegative rheumatoid arthritis with recent diagnosis of psoriatic arthritis, multiple surgeries (cholecystectomy, anterior spinal fusion, total hysterectomy, 2 with 1 being a vertical incision) , 4 episodes of small bowel obstruction with 1 episode requiring partial small bowel resection who presents for several days worth of abdominal pain. Pt was made NPO and was given non-narcotic pain medication and hydration. CT scan was ordered. In the interim pending official read of the CT, pt became agitated complaining frequently to the nurse and physician that she was not being treated. Pt was reassured, but was unreceptive. CT read came back as showing no SBO. Pt was started on clear liquids. However, pt became irate demanding IV narcotics. Physician attempted to discuss plan of care and options for treatment, but when pt was told that her CT was negative for SBO, she stated she wanted to leave AMA. Minutes to complete discharge: 30 Discharge Summary Reason For Visit: ABDOMINAL PAIN - Instructions Disposition: AGAINST MEDICAL ADVICE - Home Medications Comprehensive Discharge Medication List: Ambulatory Orders Alprazolam [Xanax] 0.5 mg PO QID 10/30/18 Amlodipine Besylate [Norvasc -] 10 mg PO DAILY 10/30/18 Apremilast [Otezla] 30 mg PO BID 10/30/18 Deutetrabenazine [Austedo] 18 mg PO BID 10/30/18 Dexlansoprazole [Dexilant] 60 mg PO DAILY 10/30/18 Escitalopram Oxalate [Lexapro -] 10 mg PO DAILY 10/30/18 Gabapentin [Neurontin -] 400 mg PO Q8H 10/30/18 Metoprolol Tartrate [Lopressor -] 25 mg PO DAILY 10/30/18 Oxcarbazepine [Trileptal] 300 mg PO BID 10/30/18 Oxycodone HCl 10 mg PO PRN 10/30/18 Oxycodone HCl 30 mg PO PRN PRN 10/30/18 traZODone HCL [Trazodone HCl] 100 mg PO HS 10/30/18 This patient is new to me today: Yes Date on this admission: 10/30/18 Emergency Visit: Yes ED Registration Date: 10/30/18 Care time: The patient presented to the Emergency Department on the above date and was hospitalized for further evaluation of their emergent condition. Critical Care patient: No - Discharge Referral Referred to [facility] Med [facility] No ATTENDING PHYSICIAN STATEMENT I saw and evaluated the patient. I reviewed the resident's note and discussed the case with the resident. I agree with the resident's findings and plan as documented. SUBJECTIVE: OBJECTIVE: ASSESSMENT AND PLAN:
== END 2018-10-30 13:51 | disposition left against medical advice (07) | DRG 389 ==
LOC: JER 18:14 → J5S 10-30 03:28
PROVIDERS: ADMIT Internal Medicine; ATTEND Hospitalist
DX: K56.609 Unspecified intestinal obstruction, unspecified as to partial versus complete obstruction (principal); R18.8 Other ascites; R10.9 Unspecified abdominal pain; M06.9 Rheumatoid arthritis, unspecified; I95.9 Hypotension, unspecified; I10 Essential (primary) hypertension; L40.50 Arthropathic psoriasis, unspecified; Z72.0 Tobacco use; E66.9 Obesity, unspecified; Z68.26 Body mass index [BMI] 26.0-26.9, adult
CPT/HCPCS: 36415; 74018-TC-FY; 74177-TC; 80053; 81003; 82550; 83605; 83690; 83735; 84484; 85025; 85027; 85610; 85730; 86850; 86900; 86901; 87086; 93005; 93010; 99285-25; J0131; J7030